=== PATIENT | male | born 1965 | race Caucasian/White ===

== ENCOUNTER 2019-06-20 20:16 | Emergency (ER) | payer OTHER ==
[~2019-06-20] VITALS: Ht 193 cm; Wt 122.5 kg
[~2019-06-20 20:16] MED LIST: ACETAMINOPHEN325 M1 PO; AMBIEN 10 MG TA10 MG PO; FLOMAX; GLUCOPHAGE500 MG PO; K-DUR10 ME1 PO; LAMICTAL XR100 MG PO; LASIX 20 MG TAB20 MG PO; LEVOXYL112 MCG PO; LISINOPRIL10 MG PO; LITHIUM CARBON300 M6 PO; MICARDIS40 MG PO; MIRTAZAPINE45 MG PO; NEURONTIN600 MG PO; SEROQUEL400 MG PO; TOPROL XL50 MG PO; ZOCOR 20 MG TAB20 M1 PO
[2019-06-20] MEDS ORDERED: REXULTI2 MG PO (20:37)
[2019-06-20] MEDS ORDERED: CARBIDOPA-LEVO1 EAC8 PO (20:37)
[2019-06-20] MEDS ORDERED: ZESTRIL10 MG PO (20:37)
[2019-06-20] MEDS ORDERED: WELLBUTRIN SR150 MG PO (20:37)
[2019-06-20] MEDS ORDERED: AUGMENTIN 875-1 EACH PO (22:10)
[2019-06-20] MEDS ORDERED: NORCO 5-325 TA1 EAC1 PO (22:10)
[2019-06-20 22:35] VITALS: BP 135/74
== END 2019-06-20 22:35 | disposition home or self-care (01) ==
LOC: M.ERS 20:16
DX: S91.312A Laceration without foreign body, left foot, initial encounter (principal); E03.9 Hypothyroidism, unspecified; F31.9 Bipolar disorder, unspecified; I10 Essential (primary) hypertension; E78.5 Hyperlipidemia, unspecified; G47.30 Sleep apnea, unspecified; Z90.49 Acquired absence of other specified parts of digestive tract; Z88.5 Allergy status to narcotic agent; W26.8XXA Contact with other sharp object(s), not elsewhere classified, initial encounter; Y93.89 Activity, other specified; Y92.89 Other specified places as the place of occurrence of the external cause; Y99.8 Other external cause status

== ENCOUNTER → 2020-05-17 | Outpatient (CLI) | payer OTHER ==
[~2020-05-17] MED LIST changes: +AUGMENTIN 875-1 EACH PO; +CARBIDOPA-LEVO1 EAC8 PO; +NORCO 5-325 TA1 EAC1 PO; +REXULTI2 MG PO; +WELLBUTRIN SR150 MG PO; +ZESTRIL10 MG PO
== END ==
LOC: M.CT 10:32
PROVIDERS: ATTEND Family Medicine
DX: E78.2 Mixed hyperlipidemia (principal)